=== PATIENT | female | born 1950 ===

== ENCOUNTER → 2022-08-27 | Outpatient (CLI) | payer SELFPAY ==
[2022-09-02 09:10] LABS: COLOR Brown (.); SIZE 2x4 mm (.); URIC ACID 100 % (.); WEIGHT 10 mg (.)
== END | disposition home or self-care (01) ==
LOC: LAB SHORT 16:57
PROVIDERS: Physician Assistant
DX: N20.0 Calculus of kidney (principal)
CPT/HCPCS: 82365

== ENCOUNTER → 2025-05-23 | Outpatient (CLI) | payer MEDICARE | END | disposition home or self-care (01) | LOC: LAB 17:47 → LAB SHORT 17:47 | DX: S81.801A Unspecified open wound, right lower leg, initial encounter (principal) | CPT/HCPCS: 87070; 87075; 87077; 87147; 87186; 87205 ==